=== PATIENT | male | born 1945 | race Caucasian/White ===

== ENCOUNTER 2017-11-30 16:15 | Inpatient (IN) ==
[2017-11-30] MEDS ORDERED: ZESTRIL PO STA (16:33)
[2017-11-30] MEDS ORDERED: ASPIRIN CHEWABLE PO STA (16:36)
--- NOTE | 2017-11-30 16:56 | DI ---
EXAM: Single AP view of the chest HISTORY: Chest pain. COMPARISON: Chest x-ray 07/04/2014 FINDINGS: Cardiomediastinal silhouette is unchanged. There is no pneumothorax or pleural effusion. There is no consolidation, nodule or mass. The osseous structures are unremarkable. IMPRESSION: No acute cardiopulmonary process with stable mild cardiomediastinal silhouette enlargeme nt
[2017-11-30] MEDS ORDERED: PROAIR HFA IH PRN (17:42)
--- NOTE | 2017-11-30 17:48 | ED.PDOC ---
General ED Provider: Dr. TIERA MINAYA Chief Complaint: Chest Pain Stated Complaint: chest pain Time Seen by Physician: 16:18 Mode of Arrival: Walk-In Information Source: Patient Exam Limitations: No limitations Primary Care Provider: WILFREDO FERMIN Nursing and Triage Documentation Reviewed and Agree: Yes Reviewed sepsis parameters & appropriate labs ordered?: Yes System Inflammatory Response Syndrome: Not Applicable Sepsis Protocol: For patient's 13 years and over: Temp is 96.8 and below OR 101 and greater Pulse >90 BPM Resp >20/minute Acutely Altered Mental Status Are patient's symptoms suggestive of a new infection, such as: -Pneumonia -Skin, Soft Tissue -Endocarditis -UTI -Bone, Joint Infection -Implantable Device -Acute Abdominal Infection -Wound Infection -Meningitis -Blood Stream Catheter Infection -Unknown System Inflammatory Response Syndrome: Not Applicable Cardiovascular Complaint Exam - Chest Pain Complaint/Exam Onset: Gradual Duration: 3 hours Symptoms Are: Resolved Timing: Intermittent Length of Chest Pain Episodes: 1 hr Initial Severity: Mild Current Severity: None Location: Reports: Midsternal Pain Radiates: Reports: None Character: Reports: Aching Aggravating: Reports: None Alleviating: Reports: Rest, Spontaneous resolution Associated Signs and Symptoms: Reports: Cough. Denies: Diaphoresis, Nausea, Vomiting, Fever, Palpitations, Hemoptysis, Back pain, Abdominal pain, Dizziness , Short of air, Calf pain, Calf swelling Related History: Reports: Similar episode Related Surgical History: Reports: None History of Healthcare-Acquired Pneumonia: Reports: No AMI/ACS Risk Factors: Reports: Sedentary, Obesity, Hypertension TAD Risk Factors: Reports: Hypertension Pulmonary Embolism Risk Factors: Reports: None Prior Care for this Complaint: No Recent Stress Test: No Recent Echo/LV Function: No JVD Present: No Subcutaneous Emphysema Present: No Diminshed Breath Sounds: No Reproducible Chest Wall Pain: No Bilateral Pulses Present: Yes Unequal Pulses Noted: No If Risk Factors for AMI/ACS Consider: EKG, Cardiac Enzymes, Serial Studies Differential Diagnoses: Stable Angina, Lower Resp. Infection Quality Indicators For Acute NH or Cardiac Chest Pain: EKG in 10min. Review of Systems - Review Of Systems Constitutional: Reports: No symptoms Eyes: Reports: No symptoms Ears, Nose, Mouth, Throat: Reports: No symptoms Respiratory: Reports: Cough Cardiac: Reports: Chest pain GI: Reports: No symptoms : Reports: No symptoms Musculoskeletal: Reports: No symptoms Skin: Reports: No symptoms Neurological: Reports: No symptoms Endocrine: Reports: No symptoms Hematologic/Lymphatic: Reports: No symptoms All Other Systems: Reviewed and Negative Past Medical History - Past Medical History Previously Healthy: Yes Endocrine: Reports: None Cardiovascular: Reports: Hypertension Respiratory: Reports: None Hematological: Reports: None Gastrointestinal: Reports: None Genitourinary: Reports: None Neuro/Psych: Reports: None Musculoskeletal: Reports: None Cancer: Reports: None - Surgical History General Surgical History: Reports: None - Family History Family History: Reports: None - Social History Smoking Status: Former smoker Hx Substance Use: No Alcohol Screening: Occasionally Physical Exam - Physical Exam Appearance: Well-appearing, No pain distress, Well-nourished Eyes: NIMISHA, EOMI, Conjunctiva clear ENT: Ears normal, Nose normal, Oropharynx normal Respiratory: Airway patent, Breath sounds clear, Breath sounds equal, Respirations nonlabored Cardiovascular: RRR, Pulses normal, No rub, No murmur GI/: Soft, Nontender, No masses, Bowel sounds normal, No Organomegaly Musculoskeletal: Normal strength, ROM intact, No edema, No calf tenderness Skin: Warm, Dry, Normal color Neurological: Sensation intact, Motor intact, Reflexes intact, Cranial nerves intact, Alert, Oriented Psychiatric: Affect appropriate, Mood appropriate Interpretation - Social Welfare Clerk Rate: Vincenzo Rhythm: Sinus - EKG Interpretation Rate: Vincenzo Rhythm: Sinus Ectopy: None Sherman: NL ST Segment: Normal Physician Notification - Case Discussed Physician Notified: [email or web address] Time of Notification: 17:48 Admit To: Inpatient Critical Care Note - Critical Care Note Total Time (mins): 0 Course - Course Hematology/Chemistry: 11/30/17 16:25 11/30/17 16:25 Orders, Labs, Meds: Lab Review 11/30/17 11/30/17 11/30/17 16:25 16:25 16:25 WBC 11.00 H RBC 4.47 L Hgb 13.4 L Hct 39.4 L MCV 88.1 MCH 30.0 MCHC 34.0 RDW Coeff of Dandy 12.8 Plt Count 233 Immature Gran % (Auto) 0.4 Neut % (Auto) 65.2 Lymph % (Auto) 23.0 [place] % (Auto) 8.0 Eos % (Auto) 2.9 Baso % (Auto) 0.5 Immature Gran # (Auto) 0.0 Neut # (Auto) 7.2 H Lymph # (Auto) 2.5 [place] # (Auto) 0.9 Eos # (Auto) 0.3 Baso # (Auto) 0.1 PT 9.9 INR 0.99 APTT 27.2 Sodium 137 Potassium 5.0 Chloride 103 Carbon Dioxide 22 L Anion Gap 17.0 BUN 16 Creatinine 1.53 H Estimated GFR (MDRD) 45.00 BUN/Creatinine Ratio 10.45 Glucose 82 Calcium 9.4 Total Bilirubin 0.8 AST 23 ALT 26 Alkaline Phosphatase 82 Total Creatine Kinase 60 Troponin I 0.0130 Total Protein 7.7 Albumin 3.7 Globulin 4.0 Albumin/Globulin Ratio 0.93 Orders Category Date Time Status ADMIT PATIENT INPATIENT .TO [facility] (MONITORED BED) ADMISSION 11/30/17 17: 44 Active EKG-(ED ONLY) Stat CARDIO 11/30/17 16:33 Ordered EKG-(IP & OP ONLY) DAILY CARDIO 12/01/17 06:00 Ordered EKG-(IP & OP ONLY) DAILY CARDIO 12/02/17 06:00 Ordered EKG-(IP & OP ONLY) DAILY CARDIO 12/03/17 06:00 Ordered ACTIVITY .Complete BR CARE 11/30/17 17:44 Ordered TELEMETRY MONITORING TELE CARE 11/30/17 17:45 Active VITAL SIGNS Q4HR CARE 11/30/17 17:44 Ordered REGULAR DIET DIETARY 11/30/17 Dinner Ordered ED IV/MEDIPORT/POWERPORT .ONCE EMERGENCY 11/30/17 16:33 Active CBC W/ AUTO DIFF DAILY@0600 LAB 12/01/17 06:00 Ordered CBC W/ AUTO DIFF DAILY@0600 LAB 12/02/17 06:00 Ordered CBC W/ AUTO DIFF Stat LAB 11/30/17 16:32 Ordered COMPREHENSIVE METABOLIC PANEL DAILY@0600 LAB 12/01/17 06:00 Ordered COMPREHENSIVE METABOLIC PANEL DAILY@0600 LAB 12/02/17 06:00 Ordered COMPREHENSIVE METABOLIC PANEL Stat LAB 11/30/17 16:32 Ordered CREATINE KINASE Q8H LAB 11/30/17 23:45 Ordered CREATINE KINASE Q8H LAB 12/01/17 07:45 Ordered CREATINE KINASE Stat LAB 11/30/17 16:32 Ordered PARTIAL THROMBOPLASTIN TIME Stat LAB 11/30/17 16:32 Ordered PT WITH INR Stat LAB 11/30/17 16:32 Ordered TROPONIN I Q8H LAB 11/30/17 23:45 Ordered TROPONIN I Q8H LAB 12/01/17 07:45 Ordered TROPONIN I Stat LAB 11/30/17 16:32 Ordered 0.9 % Sodium Chloride [Saline Flush] MEDS 11/30/17 16:32 Active 1 syr IVF PRN PRN Albuterol Sulfate [Proair Hfa] MEDS 11/30/17 17:42 Ordered 1 puff IH DAILY PRN Aspirin [Aspirin Chewable] MEDS 11/30/17 16:36 Stat 243 mg PO ONCE STA Aspirin [Aspirin Chewable] MEDS 12/01/17 09:00 Ordered 81 mg PO DAILY Lisinopril [Zestril] MEDS 12/01/17 09:00 Ordered 2.5 mg PO DAILY Lisinopril [Zestril] MEDS 11/30/17 16:33 Discontinued 40 mg PO ONCE STA Sodium Chloride 0.9% [Sodium Chloride] 1,000 ml MEDS 11/30/17 18:00 Ordered IV 75 mls/hr CHEST, 1V AP ONLY Stat RADS 11/30/17 16:32 Ordered Medications Generic Name Dose Route Start Last Admin Trade Name Freq PRN Reason Stop Dose Admin Albuterol Sulfate 1 puff 11/30/17 17:42 Proair Hfa IH DAILY PRN Bronchospasm Aspirin 81 mg 12/01/17 09:00 Aspirin Chewable PO DAILY JEAN MARIE Non-Formulary Medication 2.5 mg 12/01/17 09:00 Lisinopril [Zestril] PO DAILY JEAN MARIE Sodium Chloride 1 syr 11/30/17 16:32 Saline Flush IVF PRN PRN To flush IV Discontinued Medications Generic Name Dose Route Start Last Admin Trade Name Freq PRN Reason Stop Dose Admin Aspirin 243 mg 11/30/17 16:36 11/30/17 16:43 Aspirin Chewable PO 11/30/17 16:37 243 mg ONCE STA Administration Lisinopril 40 mg 11/30/17 16:33 11/30/17 16:43 Zestril PO 11/30/17 16:34 40 mg ONCE STA Administration Vital Signs: Temp Pulse Resp BP Pulse Ox 11/30/17 16:15 98.7 F 68 22 218/112 H 99 PRITI Risk Score PRITI Risk Score: Risk Score Odds of by 30D 0 0.1 (0.1-0.2) 1 0.3 (0.2-0.3) 2 0.4 (0.3-0.5) 3 0.7 (0.6-0.9) 4 1.2 (1.0-1.5) 5 2.2 (1.9-2.6) 6 3.0 (2.5-3.6) 7 4.8 (3.8-6.1) Departure - Departure Time of Disposition: 17:48 Disposition: HOME SELF-CARE Discharge Problem: Chest pain, Uncontrolled hypertension Instructions: Chest Pain (ED), Angina (ED) Condition: Good Pt referred to PMD for follow-up: Yes IPMP verified?: No Additional Instructions: Please call your Family Physician as soon as possible to schedule a follow-up appointment. Allergies/Adverse Reactions: Allergies Sulfa (Sulfonamide Antibiotics) Adverse Reaction (Verified 11/30/17 16:19) Home Medications: Ambulatory Orders Albuterol Sulfate [Proair Hfa] 1 puff INH DAILY PRN 07/04/14 Aspirin [Aspirin Chewable] 81 mg PO DAILY 07/04/14 Lisinopril [Zestril] 2.5 mg PO DAILY 11/30/17
[2017-11-30 18:58] VITALS: BMI 4382.6
[2017-11-30] MEDS: SODIUM CHLORIDE 1,000 ML IV SCH (19:31)
[2017-11-30] MEDS ORDERED: MORPHINE 2 MG/ML SYRINGE IVP PRN (19:47)
[2017-11-30] MEDS ORDERED: ZOFRAN 4 MG/2 ML IVP PRN (19:47)
[2017-12-01] MEDS: SODIUM CHLORIDE 1,000 ML IV SCH (08:59)
[2017-12-01] MEDS: FOLIC ACID 1 MG, INFUVITE ADULT 10 ML, THIAMINE 100 MG in SODIUM CHLORIDE 0.9%-KCL 20 M... IV SCH ×2 (09:00→23:22)
[2017-12-01] MEDS ORDERED: LIBRIUM PO SCH (09:00)
[2017-12-01] MEDS ORDERED: NON-FORMULARY MEDICATION (Lisinopril [Zestril] 2.5 MG) PO SCH (09:00)
[2017-12-01] MEDS: ASPIRIN CHEWABLE PO SCH (09:37)
[2017-12-01] MEDS: ZESTRIL PO SCH (09:37)
[2017-12-01] MEDS: MORPHINE SULFATE TAB PO PRN ×2 (09:38→19:46)
[2017-12-01] MEDS: LIBRIUM PO SCH ×3 (09:38→20:12)
[2017-12-01] MEDS: DUONEB NEB SCH ×3 (09:58→21:00)
--- NOTE | 2017-12-01 11:10 | CT ---
EXAM: CT abdomen with and without contrast. CT pelvis with and without contrast. HISTORY: Abdominal pain. Low back pain. COMPARISON: 07/04/2014. TECHNIQUE: Multiple axial images of the abdomen and pelvis were obtained prior to and following intr avenous administration of 100 mL of Visipaque 320, low osmolar. Images reformatted in the sagittal a nd coronal plane. FINDINGS: Degenerative changes present in the spine. Clustered nodularity in both lower lobes and p rove from prior CT likely postinflammatory scarring. The gallbladder is distended, and there is mild intrahepatic and extrahepatic biliary dilatation. No obstructing calcification or mass identified. No localized liver or pancreatic abnormalities seen. The spleen and adrenal glands are unremarkable. Numerous left renal cysts are present which are sim ilar to the prior study. There is increased left renal atrophy with suspected left renal artery orig in high-grade stenosis. Small hiatal hernia may be present. There is no evidence for bowel obstruction or acute inflammation . The appendix is normal. Urinary bladder is unremarkable. Prominent fat noted in the left inguina l canal. No free fluid, free air or lymphadenopathy identified. Atherosclerotic calcifications pres ent. There is bilobed fusiform dilatation of the infrarenal abdominal aorta to a maximum diameter 3 cm. There is fusiform dilatation of the left common iliac artery to a maximum diameter of 2.4 cm. L eft common iliac artery measures up to 1.7 cm diameter. IMPRESSION: 1. Mildly distended gallbladder and mild intrahepatic and extrahepatic biliary dilatation. Obstruct ing mass or stone is not identified. Correlation with MRCP is recommended. 2. Progressive left renal atrophy likely due to left renal artery origin stenosis. 3. Infrarenal abdominal aortic aneurysm measuring 3 cm. Fusiform common iliac artery aneurysms franny uring up to 1.7 cm on the right and 2.4 cm on the left.
[2017-12-01] MEDS ORDERED: INFUVITE ADULT IV ONE (23:10)
[2017-12-01] MEDS ORDERED: THIAMINE ONE (23:10)
[2017-12-01] MEDS ORDERED: FOLIC ACID ONE (23:10)
[2017-12-01] MEDS ORDERED: POTASSIUM CHLORIDE 20 MEQ VIAL-ADDITIVE ONLY IV ONE (23:15)
[2017-12-02] MEDS: DUONEB NEB SCH ×4 (04:50→20:48)
[2017-12-02] MEDS: COREG PO SCH ×2 (11:56→17:14)
[2017-12-02] MEDS: ASPIRIN CHEWABLE PO SCH (11:56)
[2017-12-02] MEDS: ZESTRIL PO SCH (11:56)
[2017-12-02] MEDS: LIBRIUM PO SCH ×3 (11:57→20:32)
--- NOTE | 2017-12-02 12:39 | US ---
EXAM: Abdominal ultrasound limited HISTORY: Abdominal pain COMPARISON: CT abdomen pelvis yesterday and CT 07/04/2014 TECHNIQUE: Sonographic and limited Doppler evaluation of the right upper quadrant was performed. FINDINGS: The liver is normal in echogenicity and measures 19.5 cm. The portal vein is patent. The gallbladder and is distended with questionable polyp versus sludge near the gallbladder neck. The g allbladder wall measures 0.4 cm in thickness with no acute pericholecystic fluid. Common bile duct is unremarkable and measures 0.9 cm in diameter with no internal stone or debris identified.. The panc reas is not visualized due to bowel gas. IMPRESSION: 1. Gallbladder distension with questionable polyp versus sludge in the gallbladder neck with wall thi ckness at upper limit of normal for size with no pericholecystic fluid. Subacute inflammation could b e considered. MRCP was recommended on prior CT and may be obtained to better evaluate. 2. Limited evaluation due to bowel gas.
--- NOTE | 2017-12-02 13:10 | US ---
Exam: Robbins-scale and color Doppler ultrasonographic evaluation of the kidneys and urinary bladder. Comparison: CT abdomen pelvis performed 12/01/2017. Reason for exam: Left renal atrophy. FINDINGS: Image interpretation is limited by patient body habitus. The right kidney measures approximately 11.2 x 6.4 x 4.3 cm with a normal appearing echotexture, no h ydronephrosis, and no nephrolithiasis. Evaluation of the left kidney is significantly limited. There are multiple cystic structures seen in the left renal parenchyma. Left renal parenchymal archi tecture measures approximately 6.8 x 3.5 x 2.2 cm. The bladder appears grossly unremarkable. Impression: 1. Limited evaluation of the left kidney secondary to patient body habitus and multiple large cystic structures seen throughout the left renal parenchyma. Imaging findings correlate with the CT perform ed on 12/01/2017. If clinical concern exists, further evaluation may be performed. 2. The right kidney and urinary bladder appear grossly unremarkable.
--- NOTE | 2017-12-02 13:19 | US ---
EXAM: Renal artery duplex HISTORY: Left renal arterial atrophy versus stenosis with persistent hypertension COMPARISON: Renal ultrasound same day and CT abdomen pelvis 12/01/2017 TECHNIQUE: Sonographic and Doppler evaluation of the kidneys and renal arteries were performed. This evaluation is severely limited due to patient body habitus and bowel gas. FINDINGS: The aorta is poorly visualized due to significant bowel gas. Distal aorta measures 2.8 cm . The right kidney measures 11.2 cm in length. Peak systolic velocities measure 90 cm/sec at the ostium, 70 cm/sec in the mid artery and 80 cm/sec i n the renal hilum. The arcuate artery demonstrates a peak systolic velocity of 20 cm/sec and resistive index of 0.64 whi ch is normal. The right renal vein is patent. The left kidney and vessels are not identified. IMPRESSION: 1. The left kidney and arteries were not able to be evaluated due to body habitus and bowel gas. 2. The right renal peak systolic velocities and resistive indices are within normal limits. 3. The aorta is poorly visualized due to bowel gas.
[2017-12-02] MEDS: FOLIC ACID 1 MG, INFUVITE ADULT 10 ML, THIAMINE 100 MG in SODIUM CHLORIDE 0.9%-KCL 20 M... IV SCH (13:48)
[2017-12-03] MEDS ORDERED: THIAMINE ONE ×2 (01:54→14:52)
[2017-12-03] MEDS ORDERED: FOLIC ACID ONE ×2 (01:54→14:52)
[2017-12-03] MEDS ORDERED: INFUVITE ADULT IV ONE ×2 (01:54→14:52)
[2017-12-03] MEDS: FOLIC ACID 1 MG, INFUVITE ADULT 10 ML, THIAMINE 100 MG in SODIUM CHLORIDE 0.9%-KCL 20 M... IV SCH ×2 (01:59→15:04)
[2017-12-03] MEDS: DUONEB NEB SCH ×4 (04:14→21:52)
[2017-12-03] MEDS: ASPIRIN CHEWABLE PO SCH (08:30)
[2017-12-03] MEDS: COREG PO SCH ×2 (08:30→17:44)
[2017-12-03] MEDS: ZESTRIL PO SCH (08:30)
[2017-12-03] MEDS: LIBRIUM PO SCH ×3 (08:30→20:35)
[2017-12-03] MEDS: MORPHINE SULFATE TAB PO PRN (08:33)
[2017-12-03] MEDS ORDERED: VASOTEC IV IVP STA (21:42)
[2017-12-03] MEDS ORDERED: LASIX IVP STA (21:42)
[2017-12-04] MEDS: DUONEB NEB SCH ×4 (05:12→21:48)
[2017-12-04] MEDS: LIBRIUM PO SCH ×3 (08:48→21:18)
[2017-12-04] MEDS: ASPIRIN CHEWABLE PO SCH (08:48)
[2017-12-04] MEDS: ZESTRIL PO SCH (08:48)
[2017-12-04] MEDS: COREG PO SCH ×2 (08:48→17:51)
[2017-12-04] MEDS: NORVASC PO SCH (14:58)
[2017-12-04] MEDS: MORPHINE SULFATE TAB PO PRN (17:51)
[2017-12-05] MEDS: DUONEB NEB SCH ×4 (05:08→20:05)
[2017-12-05] MEDS: ZESTRIL PO SCH (08:36)
[2017-12-05] MEDS: NORVASC PO SCH (08:36)
[2017-12-05] MEDS: ASPIRIN CHEWABLE PO SCH (08:37)
[2017-12-05] MEDS: COREG PO SCH ×2 (08:37→16:48)
[2017-12-05] MEDS: CATAPRES PO SCH ×2 (08:40→20:57)
--- NOTE | 2017-12-05 09:59 | CT ---
EXAM: CT of the head without contrast History: Slurred speech. Technique: Multiplanar CT images through the head were obtained without the administration of IV con trast Findings: There is mild mucosal thickening of the ethmoid air cells and sphenoid sinuses. Mastoid ai r cells are clear in general. No acute calvarial abnormalities. Intracranially the ventricular and cisternal spaces are normal in size, shape and configuration for a patient of this age. No dominant mass or midline shift. No hydrocephalous. No acute intracranial hemorrhage or abnormal extraaxial fluid collections. Mild periventricular and subcortical white gary er hypodensities and slightly more focal in the left frontal region. Impression: 1. No acute intracranial hemorrhage. 2. Nonspecific periventricular and subcortical white matter hypodensities and slightly more focal in the left frontal region. Developing infarction cannot be excluded and consider correlation with brai n MRI.
--- NOTE | 2017-12-05 11:18 | HP ---
DATE OF SERVICE: 11/30/17 CHIEF COMPLAINT: Epigastric pain HISTORY OF PRESENT ILLNESS: This is a 72 year old male came to the emergency room been having some epigastric pain episodic comes and goes. Started having the more pain today and also to the left side of the chest. Came to the emergency room as the pain was not getting better. The patient was seen by Dr. Mendez in the emergency room. Blood pressure was 218/112. At that time the he was given a dose of Lisinopril 40mg, blood pressure dropped to 198/93. Chest x-ray was negative for any acute findings. Rest of the blood work hgb was 13.4, WBC elevated, PT INR normal. Chemistry was normal and amylase and lipase was normal. At that time the patient was admitted to the hospital for uncontrolled hypertension. REVIEW OF SYSTEMS: CONSTITUTIONAL: No fever, no chills. HEENT: Normal. ENDOCRINE: No weight gain; no weight loss. CVS: Left sided chest pain. No PND, no orthopnea. No shortness of breath. No PND, no orthopnea. RESPIRATORY: No cough, no congestion. No hemoptysis. GI: Nausea feeling sometime, no vomiting. Abdominal pain. No melena. : No hematuria. No polyuria. MUSCULOSKELETAL: No joint swelling. PSYCHIATRIC: Not anxious. No depression. No suicidal thoughts. No homicidal thoughts. SKIN: Intact, no open lesions. PAST MEDICAL HISTORY: Hypertension COPD Dyslipidemia Some Osteoarthritis PAST SURGICAL HISTORY: No surgeries PERSONAL HISTORY: Does not smoke, drinks only occasionally. lives with the . FAMILY HISTORY: Cancer, MEDICATIONS: Aspirin ProAir Zestril Pravachol ALLERGIES: Sulfa PHYSICAL EXAMINATION: V/S: Blood pressure 198/93, respiratory rate 18, heart rate 61, temperature 98.9 with saturation 96%. HEENT: Atraumatic, normocephalic. No scleral icterus. Pallor positive. Mucosa dry. Epigastric discomfort present. NECK: Supple. No JVD, no bruit. No lymphadenopathy. No thyromegaly. HEART: S1, S2 normal. No murmur. No cyanosis or clubbing. No ascites. LUNGS: Clear to auscultation. No rales or rhonchi. ABDOMEN: Soft, nontender. Bowel sounds are active. No CVA tenderness. No rigidity or guarding. EXTREMITIES: No pedal edema. No cyanosis or clubbing MUSCULOSKELETAL: Normal joints, no swelling. NEUROLOGIC: The patient is SKIN: Intact; no open lesions. LYMPHATIC: No lymph nodes palpable. LABS: WBC 11.0, hgb 13.4, hct 39.4, plt count 233, sodium 137, potassium 5.0, chloride 103, bicarb 22, BUN 16,c reatinine 1.53, glucose 82, A1c 5.2. First set of cardiac enzymes are negative. ASSESSMENT: 1. Hypertension, uncontrolled 2. Chest pain, noncardiac 3. Epigastric pain rule out valvular disease 4. Dyslipidemia PLAN: 1. Admit the patient to the regular floor 2. CBC and CMP today and daily 3. Cardiac enzymes and Troponin 4. Lisinopril 40mg PO daily 5. Continue home medication 6. Will get CT abdomen and pelvis in the morning 7. Will follow the patient in daily rounds. TIME SPENT: MORE THAN 75 minutes MTDD
--- NOTE | 2017-12-05 12:54 | PN ---
DATE OF SERVICE: 12/01/17 SUBJECTIVE: The patient was admitted with epigastric pain and uncontrolled hypertension. The pain is more in the epigastric and right upper quadrant area. No rigidity or guarding in the right upper quadrant area. No elevated WBC. No fever or chills. Blood pressure is somewhat better. History of alcohol ingestion. Started on the Librium. Hgb is stable. REVIEW OF SYSTEMS: CONSTITUTIONAL: No fever, no chills. HEENT: Normal. ENDOCRINE: No weight gain, no weight loss. CVS: No angina symptoms. No CHF symptoms. No palpitations. No atypical chest pain for CAD. No shortness of breath. No PND, no orthopnea. RESPIRATORY: No cough, no hemoptysis. GI: No nausea, no vomiting. No abdominal pain. : No hematuria. No polyuria. MUSCULOSKELETAL: No joint swelling. PSYCHIATRIC: Not anxious. No depression. No suicidal thoughts. No homicidal thoughts. SKIN: Intact. No rash. PHYSICAL EXAMINATION: V/S: Blood pressure 176/80, respiratory rate 18, heart rate 59, temperature 98, saturation is 99%. HEENT: Normocephalic, atraumatic. Mucosa dry, Pallor positive. No icterus. Epigastric discomfort. NECK: Supple. No JVD, no carotid bruit. No lymphadenopathy. LUNGS: Clear to auscultation. No rales or rhonchi. HEART: S1, S2 normal. No S3. No murmur, gallop or regurgitation. ABDOMEN: Soft, nontender. Bowel sounds active. No rigidity. No rebound or guarding. No CVA tenderness. EXTREMITIES: No cyanosis, clubbing or pedal edema. MUSCULOSKELETAL: No joint swelling. NEUROLOGIC: Awake, alert, oriented times three. No focal deficit. LYMPHATIC: No lymph nodes palpable. SKIN: Intact. LABS: Hgb 12.2, hct 36.5, WBC 7.55, plt count 203, sodium 139, potassium 4.2, chloride 106, bicarb 27, BUN 16, creatinine 1.40, glucose 70. ASSESSMENT: 1. Hypertension, uncontrolled which is getting better 2. Epigastric pain most likely from the gallbladder issues 3. Abdominal aortic aneurysm 4. COPD 5. Nicotine use 6. Alcohol use PLAN: 1. CT abdomen and pelvis 2. Librium 3. Out of bed to chair 4. IV fluids 5. DUO NEBS TIME SPENT: More than 35 minutes MTDD
--- NOTE | 2017-12-05 13:51 | PN ---
DATE OF SERVICE: 12/02/17 SUBJECTIVE: The patient still having one more episode of the abdominal discomfort. Blood pressure is getting better but seems like the patient does have a problem with alcohol. We don't know the detail of the alcoholism because he just tells me that he just it on weekends and that's all. REVIEW OF SYSTEMS: CONSTITUTIONAL: No fever, no chills. HEENT: Normal. ENDOCRINE: No weight gain, no weight loss. CVS: No angina symptoms. No CHF symptoms. No palpitations. No atypical chest pain for CAD. No shortness of breath. No PND, no orthopnea. RESPIRATORY: No cough, no hemoptysis. GI: No nausea, no vomiting. No abdominal pain. : No hematuria. No polyuria. MUSCULOSKELETAL: No joint swelling. PSYCHIATRIC: Not anxious. No depression. No suicidal thoughts. No homicidal thoughts. SKIN: Intact. No rash. PHYSICAL EXAMINATION: V/S: Blood pressure 128/72, respiratory rate 20, heart rate 94, temperature 98.6. HEENT: Normocephalic, atraumatic. Mucosa dry. Pallor positive. No icterus. NECK: Supple. No JVD, no carotid bruit. No lymphadenopathy. LUNGS: Decreased and basilar crackles. Clear to auscultation. No rales or rhonchi. HEART: S1, S2 normal. No S3. No murmur, gallop or regurgitation. ABDOMEN: Soft, nontender. Bowel sounds active. No rigidity. No rebound or guarding. No CVA tenderness. EXTREMITIES: No cyanosis, clubbing or pedal edema. MUSCULOSKELETAL: No joint swelling. NEUROLOGIC: Awake, alert, oriented times three. No focal deficit. LYMPHATIC: No lymph nodes palpable. SKIN: Intact. LABS: Sodium 139, potassium 3.9, chloride 105, bicarb 22, BUN 13, creatinine 1.58, glucose 107, AST 164, ALT 199, WBC 7.86, hgb 11.9, hct 35.8, plt count 201. ASSESSMENT: 1. Elevated liver enzymes 2. Uncontrolled hypertension 3. Epigastric pain most likely from the gallbladder stones 4. Abdominal aortic aneurysm 5. Small hiatal hernia 6. Distended gallbladder 7. Progressive left renal atrophy, will be doing the Renal Doppler today PLAN: 1. Renal Doppler 2. Right upper quadrant ultrasound 3. CBC and CMP in the morning 4. Regular diet 5. Out of bed to chair activity as tolerated 6. Librium PRN TIME SPENT: More than 35 minutes MTDD
--- NOTE | 2017-12-05 14:11 | PN ---
DATE OF SERVICE: 12/03/17 SUBJECTIVE: The patient was admitted with chest pain and uncontrolled hypertension. Blood pressure been better 150/84. CT of abdomen and pelvic showed the cholelithiasis and distended gallbladder with elevated AST and ALT yesterday. The patient is still in the bed and not in any distress; says that he is feeling better. REVIEW OF SYSTEMS: CONSTITUTIONAL: No fever, no chills. HEENT: Normal. ENDOCRINE: No weight gain, no weight loss. CVS: No angina symptoms. No CHF symptoms. No palpitations. No atypical chest pain for CAD. No shortness of breath. No PND, no orthopnea. RESPIRATORY: No cough, no hemoptysis. GI: No nausea, no vomiting. No abdominal pain. : No hematuria. No polyuria. MUSCULOSKELETAL: No joint swelling. PSYCHIATRIC: Not anxious. No depression. No suicidal thoughts. No homicidal thoughts. SKIN: Intact. No rash. PHYSICAL EXAMINATION: V/S: Blood pressure 159/87, respiratory rate 16, heart rate 63, temperature 97.3 and saturation 97%. HEENT: Normocephalic, atraumatic. Mucosa dry. Pallor positive. No icterus. NECK: Supple. No JVD, no carotid bruit. No lymphadenopathy. LUNGS: Decreased and clear to auscultation. No rales or rhonchi. HEART: S1, S2 normal. No S3. No murmur, gallop or regurgitation. ABDOMEN: Soft, nontender. Bowel sounds active. No rigidity. No rebound or guarding. No CVA tenderness. EXTREMITIES: No cyanosis, clubbing or pedal edema. MUSCULOSKELETAL: No joint swelling. NEUROLOGIC: Awake, alert, oriented times three. No focal deficit. LYMPHATIC: No lymph nodes palpable. SKIN: Intact. LABS: WBC 7.86, hgb 11.9, hct 35.8, plt count 201, sodium 139, potassium 3.9, chloride 105, bicarb 23, BUN 13, creatinine 1.51, AST 164, ALT 199. Alkaline phosphatase is 162. ASSESSMENT: 1. Elevated liver enzymes 2. Status post uncontrolled hypertension 3. Epigastric pain most likely from the Cholelithiasis 4. Distended gallbladder 5. Abdominal aortic aneurysm 6. COPD PLAN: 1. Out of bed to chair activity as tolerated 2. Continue Librium 3. Morphine 4. Coreg 6.25mg twice a day 5. Lisinopril 40mg will be continued 6. Repeat CMP today to look for the liver enzymes Will follow the patient in daily rounds. TIME SPENT: More than 35 minutes MTDD
--- NOTE | 2017-12-05 16:40 | MRI ---
EXAM: Brain MRI without contrast. HISTORY: Slurred speech. COMPARISON: Head CT 12/05/2017. TECHNIQUE: Multiplanar, multisequence MR images were acquired of the brain without contrast. FINDINGS: The midline structures are central and the craniocervical junction is unremarkable. There is mild enlargement of the subarachnoid space over both frontal lobes at the convexity and there is mild widening of the lateral and third ventricles. There is mild prominence of some sulci in the fro ntal and parietal lobes. These findings are compatible with age related involutional changes which a re greater centrally. The brain parenchyma has no restricted diffusion to suggest acute hypoperfusion or infarction. Small T2 hyperintensities are present in the supratentorial white matter and tom and this includes the an terior left frontal lobe in the region shown on the comparison head CT. 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 There is no abnormal dark grad ient echo signal. The corpus callosum is normal. The pituitary gland is unremarkable. There are no intraorbital masses. The rudimentary right air cell has minor mucosal thickening. Ther e is mild mucosal thickening in the ethmoid air cells bilaterally. Remainder of the paranasal sinuse s, middle ears and mastoids are clear. Flow voids are present in the major intracranial arteries and dural venous sinuses. IMPRESSION: 1. No intracranial mass, hemorrhage or acute cerebral infarct. 2. Age related involutional changes and mild to moderate supratentorial and mild pontine chronic isc hemic small vessel disease.
[2017-12-05] MEDS: MORPHINE SULFATE TAB PO PRN (16:49)
[2017-12-06] MEDS: DUONEB NEB SCH ×2 (05:22→10:06)
[2017-12-06] MEDS: ASPIRIN CHEWABLE PO SCH (08:49)
[2017-12-06] MEDS: COREG PO SCH (08:50)
[2017-12-06] MEDS: ZESTRIL PO SCH (08:50)
[2017-12-06] MEDS: NORVASC PO SCH (08:50)
[2017-12-06 10:07] VITALS: BP 88/49; TEMP 98
--- NOTE | 2017-12-06 11:20 | PN ---
DATE OF SERVICE: 12/04/17 SUBJECTIVE: The patient had episode where his blood pressure over the night went up to 209/ 95. Kyara was the nursing and we gave him the Lasix 40mg IV push and Vasotec 1.25 which did drop the blood pressure. The patient is very agitated and says that he wants to go home and wants to start fishing. Did explain that given his blood pressure been uncontrolled it is not safe for him to be going outside where the high risk of stroke is almost 6-8 times with given his blood pressure and verbalized understanding. The patient's family and is in the room. REVIEW OF SYSTEMS: CONSTITUTIONAL: No fever, no chills. HEENT: Normal. ENDOCRINE: No weight gain, no weight loss. CVS: No angina symptoms. No CHF symptoms. No palpitations. No atypical chest pain for CAD. No shortness of breath. No PND, no orthopnea. RESPIRATORY: No cough, no hemoptysis. GI: No nausea, no vomiting. No abdominal pain. : No hematuria. No polyuria. MUSCULOSKELETAL: No joint swelling. PSYCHIATRIC: Not anxious. No depression. No suicidal thoughts. No homicidal thoughts. SKIN: Intact. No rash. PHYSICAL EXAMINATION: V/S: blood pressure 162/84, respiratory rate 18, heart rate 80, temperature 97.3 with saturation 97%. HEENT: Normocephalic, atraumatic. Mucosa dry. Pallor positive. No icterus. NECK: Supple. No JVD, no carotid bruit. No lymphadenopathy. LUNGS: Clear to auscultation. No rales or rhonchi. HEART: S1, S2 normal. No S3. No murmur, gallop or regurgitation. ABDOMEN: Soft, nontender. Bowel sounds active. No rigidity. No rebound or guarding. No CVA tenderness. EXTREMITIES: No cyanosis, clubbing or pedal edema. MUSCULOSKELETAL: No joint swelling. NEUROLOGIC: Awake, alert, oriented times three. No focal deficit. LYMPHATIC: No lymph nodes palpable. SKIN: Intact. LABS: WBC 7.86, ghb 11.9, hct 35.8, plt count 201, sodium 138, potassium 4.7, chloride 107, bicarb 23, BUN 14, creatinnie 1.57, glucose 101. AST 56, ALT 137. Alkaline phosphatase 185. ASSESSMENT: 1. Uncontrolled hypertension 2. Elevated liver enzymes which are getting better 3. Epigastric pain with ultrasound showing the possible polyp in the gallbladder 4. Osteoarthritis 5. DJD spine 6. Anxiety PLAN: 1. No more IV fluids 2. Continue the Coreg 6.25 3. Norvasc 10mg 4. Lisinopril 40mg PO daily 5. Daily I&O's TIME SPENT: More than 35 minutes MTDD
--- NOTE | 2017-12-06 13:31 | PN ---
DATE OF SERVICE: 12/05/17 SUBJECTIVE: The patient's blood pressure been elevated. The patient was given Librium for making him calm because the patient was agitated and anxious which did make him groggy. CT head was done today which showed some questionable area in the ventricular area. MRI was ordered which did not show any intracranial mass, hemorrhage or acute cerebral infarct. Age related involutional change and mild to moderate supratentorial and mild pontine chronic ischemic small vessel disease otherwise no findings. The patient's blood pressure is gradually getting better. The patient's family has been worried as the patient has a change in mental status. REVIEW OF SYSTEMS: CONSTITUTIONAL: No fever, no chills. HEENT: Normal. ENDOCRINE: No weight gain, no weight loss. CVS: No angina symptoms. No CHF symptoms. No palpitations. No atypical chest pain for CAD. No shortness of breath. No PND, no orthopnea. RESPIRATORY: No cough, no hemoptysis. GI: No nausea, no vomiting. No abdominal pain. : No hematuria. No polyuria. MUSCULOSKELETAL: No joint swelling. PSYCHIATRIC: Not anxious. No depression. No suicidal thoughts. No homicidal thoughts. SKIN: Intact. No rash. PHYSICAL EXAMINATION: V/S: Blood pressure 145/82, respiratory rate 18, heart rate 79, temperature 97.8 with saturation 95%. HEENT: Normocephalic, atraumatic. Mucosa dry. Pallor positive. No icterus. NECK: Supple. No JVD, no carotid bruit. No lymphadenopathy. LUNGS: Clear to auscultation. No rales or rhonchi. HEART: S1, S2 normal. No S3. No murmur, gallop or regurgitation. ABDOMEN: Soft, nontender. Bowel sounds active. No rigidity. No rebound or guarding. No CVA tenderness. EXTREMITIES: No cyanosis, clubbing or pedal edema. Movement of all four extremities. All flyer builder are good. MUSCULOSKELETAL: No joint swelling. NEUROLOGIC: Awake, alert, oriented times three. No focal deficit. No slurry speech LYMPHATIC: No lymph nodes palpable. SKIN: Intact. LABS: WBC 14.10, hgb 10.3, hct 40.3, plt count 248, sodium 140, potassium 4.1, chloride 104, bicarb 25, BUN 17, creatinine 1.62 and glucose 109. AST 26, ALT 80. ASSESSMENT: 1. Uncontrolled hypertension 2. Chest pain noncardiac 3. Cholelithiasis 4. Elevated liver enzymes which is getting better 5. Osteoarthritis 6. DJD spine PLAN: 1. No Librium 2. MRI of the brain 3. DUO NEBS 4. Clonidine 0.1mg twice a day 5. Coreg twice a day 6. Norvasc 10mg 7. Out of bed to chair activity as tolerated TIME SPENT: More than 35 minutes MTDD
--- NOTE | 2017-12-27 20:28 | DS ---
DATE OF SERVICE: 12/06/17 FINAL DIAGNOSIS: 1. HYPERTENSIVE URGENCY 2. CHEST PAIN, NONCARDIAC 3. CHOLELITHIASIS, MOST LIKELY GALLBLADDER SPASM 4. POLYPS IN THE GALLBLADDER 5. ELEVATED LIVER ENZYMES PROBABLY PASSING OF STONE WHICH IS BETTER TODAY 6. ANEMIA 7. CKD WITH GFR OF 46 TO 50 8. STATUS POST CHANGE IN MENTAL STATUS AFTER LIBRIUM. CT OF THE HEAD AND MRI OF THE BRAIN, BOTH NEGATIVE FOR STROKE 9. ABDOMINAL AORTIC ANEURYSM, INFRARENAL 10. HISTORY OF BACK SURGERY 11. OSTEOARTHRITIS 12. VEIN LIGATION 13. FORMER SMOKER DISCHARGE INSTRUCTIONS: 1. Discharge the patient home. 2. Followup appointment with Dr. Waite in his office 12/13/17 at 3:30 p.m. MEDICATIONS AT DISCHARGE: Albuterol Aspirin Morphine MS Contin 15 mg p.o. b.i.d. - goes to Pain Management NEW PRESCRIPTIONS: Norvasc 10 mg p.o. daily Zestril 40 mg p.o. daily Coreg 6.25 mg p.o. twice a day DIET INSTRUCTIONS: Cardiac and Healthy ACTIVITY: Plenty of rest. DISEASE SPECIFIC EDUCATION: Abstain from alcohol at this time, elevated liver enzymes discussed and verbalized understanding; uncontrolled hypertension, risk of intracranial bleed and stroke discussed, verbalized understanding. HOSPITAL COURSE: 72-year-old gentleman came to the emergency room with epigastric pain. The patient was admitted to the hospital. Initial EKG was negative with hypertensive urgency in the emergency with blood pressure of 218/112, was given a dose of Lisinopril. Blood pressure came down to 185/109 and we gave IV push Enalapril 1.25 which did get the blood pressure better. He started IV fluids. Because of the given type of chest pain, it did not seem to be in the chest, more epigastric area so I requested CT abdomen and pelvis which showed mildly distended gallbladder and mild intrahepatic and extrahepatic biliary dilatation. Obstructing mass or stone is not identified. Left renal atrophy, infrarenal abdominal aortic aneurysm was seen measuring 3 cm. At that time, we did abdominal ultrasound which did confirm questionable gallbladder polyp vs sludge in the gallbladder. MRCP was recommended. Kidney ultrasound was done which did showed multiple cystic structures within the left kidney and the size was only 6 cm. The right kidney was almost 11 cm; the patient is aware of this and has seen multiple urologists multiple times. The patient was pretty much agitated, wants to go home. Blood pressure went up to 209/95 and there was question of alcohol use by the patient so the patient was started on Librium. The next day the patient was very lethargic, advised to let patient rest at that time. At that time, the patient did have CT of the head which did show some questionable mass around the periventricular area suggesting MRI of the brain. We did MRI of the brain which did not show any acute stroke. By the next day, the patient was more awake, alert, did not have any problem. Blood pressure was stabilized. At that time, the patient was walked and did well. At that time, he was discharged home. TIME SPENT: MORE THAN 65 MINUTES MTDD
== END 2017-12-06 14:05 | disposition home or self-care (01) | DRG 305 ==
LOC: ED 16:15 → MEDSURG B 17:51
PROVIDERS: ADMIT Emergency Medicine; ATTEND Emergency Medicine
DX: I16.0 Hypertensive urgency (principal); R07.89 Other chest pain; K82.8 Other specified diseases of gallbladder; K80.20 Calculus of gallbladder without cholecystitis without obstruction; I71.4 Abdominal aortic aneurysm, without rupture; N26.1 Atrophy of kidney (terminal); R74.8 Abnormal levels of other serum enzymes; D64.9 Anemia, unspecified; N18.9 Chronic kidney disease, unspecified; J44.9 Chronic obstructive pulmonary disease, unspecified; R41.82 Altered mental status, unspecified; T42.4X5A Adverse effect of benzodiazepines, initial encounter; Y92.230 Patient room in hospital as the place of occurrence of the external cause; Z87.891 Personal history of nicotine dependence; Z79.82 Long term (current) use of aspirin; Z79.899 Other long term (current) drug therapy; Z72.89 Other problems related to lifestyle; Z72.0 Tobacco use
CPT/HCPCS: 36415; 76770; 80053; 80061; 81001; 82150; 82550; 83036; 83690; 84443; 84484; 85025; 85610; 85730; 93005; 93010; 94640; 99284